=== PATIENT | female | born 1960 | race Caucasian/White ===

== ENCOUNTER 2025-01-12 09:40 | Outpatient (REF) | payer OTHER, SELFPAY ==
--- OUTSIDE RECORDS SUMMARY | 2025-01-09 09:00 | XMS_ITS | Encounter Summary ---
Author Organization [facility] Address [address] [facility] [address] [place] [address] Phone Care Team Providers Care Government Service Executive Name Role Phone Lester Riggs DO Primary Care Provider Reason for Visit * Reason Comments New Patient Encounter Details Date Type Department Care Team ([facility] Contact Info) Description 01/09/2025 9:00 AM EDT Office Visit [facility] [address] [place] [address] [place] [address] Lester Riggs DO [address] [facility], 2nd [place] [address] [email or web address] Family history of hemochromatosis (Primary Dx); Vitamin B 12 deficiency; Osteopenia of multiple sites; Annual physical exam; 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; Hormone replacement therapy; Mitral valve insufficiency, unspecified etiology; Atrial septal aneurysm Social History Tobacco Use Types Packs/Day Years Used Date Smoking Tobacco: Never Smokeless Tobacco: Never Alcohol Use Standard Drinks/Week Comments Never 0 (1 standard drink = 0.6 oz pur e alcohol) Child or Family Care Answer Date Record ed Do you have problems with on e of the following making it difficult for you to work, study, or receive health care? No 01/09/2025 Education Answer Date Recorded Are you interested in help w ith more adult education (for example, completing high school, GED, job training, learning the Ethiopian language, technical skills, or developing parenting skills)? No 01/09/2025 Are you concerned about learning? Not on file 01/09/2025 No 01/09/2025 Yes 01/09/2025 Food Answer Date Recorded Within the past 6 months we worried whether our food would run out before we got money to buy more. Never True 01/09/2025 Within the past 6 months the food we bought just didn't last and we didn't have enough money to get more. Never True Residential Stability Answer Date Recor ded What is your housing situation today? I have mukesh sing 01/09/2025 How many times have you move d in the past 12 months? Zero (I did not move) 01/09/2025 Paying for Meds Answer Date Recorded Do you have trouble paying for medicines? No 01/09/2025 Paying Utility Bills Answer Date Record ed Do you have trouble paying your heating or elect ricity bill? No 01/09/2025 Transportation Answer Date Recorded Has the lack of transportati on kept you from medical appointments or from getting medications? No 01/09/2025 Digital Access Answer Date Recorded No 01/09/2025 Yes 01/09/2025 Do you have reliable internet access at home? Ye s 01/09/2025 Do you have a device (e.g., phone, tablet, computer) with a working camera? Yes 01/09/2025 Intimate Partner Violence Answer Date R ecorded Denied Basic Needs Not on file 01/09/2025 In the past 12 months have y ou been in a relationship with a person who hurts, threatens, or tries to control you? No 01/09/2025 Worried food would run out Not on file 01/09 In the past 12 months have y ou been in a relationship with a person who hurts, threatens, or tries to control you? No 01/09/2025 Comments No Sex and Gender Information Value Date Recorded Sex Assigned at Not on file Legal Sex Female 8:32 PM EDT Gender Identity Not on file Sexual Orientation Not on file documented as of this encounter Last Filed Vital Signs Vital Sign Reading Time Taken Comments Blood Pressure 110/72 01/09/2025 8:56 AM EDT Pulse 99 01/09/2025 8:56 AM EDT Temperature - - Respiratory Rate - - Oxygen Saturation 100% 01/09/2025 8:56 AM EDT Inhaled Oxygen Concentration - - Weight 49.9 kg (110 lb) 01/09/2025 8:56 AM EDT Height - - Body Mass Index 20.78 10/24/2024 9:57 AM EDT documented in this encounter Progress Notes * Lester Riggs, DO - 01/09/2025 9:00 AM EDT Subjective: Patient ID: Ella Vega is a 64 y.o. female . Patient seen today for new patient visit, here to establish care. History and other records were updated and reviewed in the chart. Patient reports a family history of hemochromatosis, iron levels slightly elevated at last check. Will repeat in 6 months, consider need for continued monitoring. She also is requesting labs for monitoring nutritional deficiencies including vitamin B12, vitamin D, strontium. Orders placed. Review of Systems Constitutional: Negative for unexpected weight change. Respiratory: Negative for cough and shortness of breath. Cardiovascular: Negative for chest pain and palpitations. Gastrointestinal: Negative for abdominal pain and blood in stool. Genitourinary: Negative for problems with urination, pain with intercourse and blood in urine. Neurological: Negative for dizziness and headaches. Skin: Negative for persistent rash and breast concerns. Objective: Physical Exam Vitals reviewed. Constitutional: General: She is not in acute distress. Appearance: Normal appearance. HENT: Head: Normocephalic and atraumatic. Neurological: Mental Status: She is alert. Assessment/Plan: Problem List Items Addressed This Visit Mitral regurgitation Followed by cardiology, no symptoms or concerns. Continue monitoring. Osteopenia of multiple sites Follows with Dr. Ugalde, will continue monitoring with trabecular bone scoring. Relevant Orders Comprehensive metabolic panel 25-OH vitamin D Hormone replacement therapy Followed by Dr. Ugalde, continue monitoring. 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 Follows with Dr. Ugalde. Relevant Orders Miscellaneous lab test Atrial septal aneurysm Followed by cardiology, no symptoms or concerns. Continue monitoring. Other Visit Diagnoses Family history of hemochromatosis - Primary Patient no family history of hemochromatosis, borderline elevated iron on previous labs. Recheck in6 months. Will continue monitoring. Relevant Orders Iron and iron binding capacity Ferritin Vitamin B 12 deficiency Recheck lab, continue monitoring. Relevant Orders Vitamin B12 CBC Miscellaneous lab test Annual physical exam Check labs as below. Relevant Orders Vitamin B12 CBC Comprehensive metabolic panel Miscellaneous lab test Lipid panel Return in about 6 months (around 07/09/2025) for Annual physical. Lester Riggs DO This office note has been dictated using dictation software. documented in this encounter Miscellaneous Notes * Assessment & Plan Note - Lester Riggs DO - 01/10/2025 1:55 PM EDT Associated Problem(s): Atrial septal aneurysm Followed by cardiology, no symptoms or concerns. Continue monitoring. * Assessment & Plan Note - Lester Riggs DO - 01/10/2025 1:55 PM EDT Associated Problem(s): Mitral regurgitation Followed by cardiology, no symptoms or concerns. Continue monitoring. * Assessment & Plan Note - Lester Riggs DO - 01/10/2025 1:38 PM EDT Associated Problem(s): Hormone replacement therapy Followed by Dr. Ugalde, continue monitoring. * Assessment & Plan Note - Lester Riggs DO - 01/10/2025 1:37 PM EDT Associated Problem(s): Osteopenia of multiple sites Follows with Dr. Ugalde, will continue monitoring with trabecular bone scoring. * Assessment & Plan Note - Lester Riggs DO - 01/10/2025 1:37 PM EDT Associated Problem(s): 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 Stable well-controlled on Tirosint and liothyronine, continue monitoring. Follows with Dr. Ugalde. documented in this encounter Plan of Treatment Upcoming Encounters Date Type Department Care Team (Late st Contact Info) Description 02/07/2025 10:40 AM EDT Office Visit [facility] [address] [place] [address] [place] [address] Sagrario Ugalde MD [address] [place] [address] 05/08/2025 8:20 AM EST Office Visit [facility] [place] [address] [place] [phone] Sagrario Ugalde MD [address] [place] [address] 01/14/2026 8:00 AM EDT Office Visit [facility] [address] [place] [address] [place] [address] Lester Riggs DO [address] [place] [address] 01/29/2026 8:20 AM EDT Office Visit [facility] [place] [address] [place] [phone] Sagrario Ugalde MD [address] [place] [phone] [email or web address] Scheduled Orders Name Type Priority Associated Diagnoses Orde r Schedule Vitamin B12 Lab Routine Annual physical exam Vitamin B 12 deficiency Expected: 01/09/2025, Expires: 01/09/2026 CBC Lab Routine Annual physical exam Vitamin B 12 deficiency Expected: 01/09/2025, Expires: 01/09/2026 Comprehensive metabolic panel Lab Routine Annual physical exam Osteopenia of multiple sites Expected: 01/09/2025, Expires: 01/09/2026 Miscellaneous lab test Lab Routine Annual physical exam Vitamin B 12 deficiency 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 Expected: 01/09/2025, Expires: 01/09/2026 25-OH vitamin D Lab Routine Osteopenia of multiple sites Expected: 01/09/2025, Expires: 01/09/2026 Lipid panel Lab Routine Annual physical exam Expected: 01/09/2025, Expires: 01/09/2026 Iron and iron binding capacity Lab Routine Family history of hemochromatosis Expected: 01/09/2025, Expires: 01/09/2026 Ferritin Lab Routine Family history of hemochromatosis Expected: 01/09/2025, Expires: 04/10/2025 documented as of this encounter Procedures Procedure Name Priority Date/Time Associated Diagnosis Comments OUTSIDE COLOGUARD Routine 04/19/2022 documented in this encounter Results * HM COLOGUARD (04/19/2022) Outside Cologuard Neg (patient reported) Historical Provider HEALTH MAINTENANCE Final Result documented in this encounter Visit Diagnoses Diagnosis Family history of hemochromatosis- Primary Family history of other endocrine and metabolic diseases Vitamin B 12 deficiency Other B-complex deficiencies Osteopenia of multiple sites Annual physical exam Routine general medical examination at a health care facility 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 Hormone replacement therapy Mitral valve insufficiency, unspecified etiology Atrial septal aneurysm Aneurysm of heart (wall) documented in this encounter Additional Health Concerns Assessment Noted Time PHQ-2 Depression Total Score: 0 01/10/20 25 8:54 AM EDT documented as of this encounter Care Teams Government Service Executive Relationship Specialty Start Date End Date Lester Riggs DO [address] [place] [address], [address] [place] [address] [email or web address] PCP - General Internal Medicine 10/24/24 documented as of this encounter Additional Source Comments The information contained in this document represents components of the legal health record. It is not the complete legal health record.[facility]
--- OUTSIDE RECORDS SUMMARY | 2025-01-12 10:40 | XMS_ITS | Encounter Summary ---
Author Organization [facility] Address [address] [place] [address] Phone Care Team Providers Care Plug Making Operator Name Role Phone Sandra Wiseman MD Primary Care Provider + [phone] Sandra Wiseman MD Unavailable [phone] Sandra Wiseman MD Unavailable [phone] Nkechi Arrington NP Unavailable [phone] Jaydon Leyva MD Unavailable [phone] Vandana Sheppard STUNNER Primary Care Provider Ralph Arita DO Primary Care Provider [phone] Lester Riggs DO Primary Care Provider Encounter Details Date Type Department Care Team (Late st Contact Info) Description 05/19/2017 Ancillary Orders Virtual Department [address] [place] [address] Sandra Wiseman MD [address] [place] [address] Abnormal mammogram of left breast Social History Tobacco Use Types Packs/Day Years Used Date Smoking Tobacco: Never Assessed Comments No Sex and Gender Information Value Date Recorded Sex Assigned at Not on file Legal Sex Female 8:32 PM EDT Gender Identity Not on file Sexual Orientation Not on file documented as of this encounter Plan of Treatment Upcoming Encounters Date Type Department Care Team (Late st Contact Info) Description 02/07/2025 10:40 AM EDT Office Visit [facility] [address] [place] [address] [place] [address] Sagrario Ugalde MD [address] [place] [address] 05/08/2025 8:20 AM EST Office Visit [facility] [place] [address] [place] [phone] Sagrario Ugalde MD [address] [place] [address] [email or web address] 01/14/2026 8:00 AM EDT Office Visit [facility] [address] [place] [address] Lester Riggs DO [address] [address] 01/29/2026 8:20 AM EDT Office Visit [address] [phone] Sagrario Ugalde MD [address] [place] [address] Scheduled Orders Name Type Priority Associated Diagnoses Orde r Schedule Mammogram Diagnostic Call Back (Left) Imaging Routine Abnormal mammogram of left breast Expected: 05/19/2017, Expires: 05/19/2019 documented as of this encounter Visit Diagnoses Diagnosis Abnormal mammogram of left breast documented in this encounter Care Teams Plug Making Operator Relationship Specialty Start Date End Date Sandra Wiseman MD [address] [place] [address] PCP - General Internal Medicine 05/13/17 11/02/22 Vandana Sheppard NP [facility] Ty Martin [address] [address] PCP - General Nurse Practitioner 11/03/22 07/30/24 Ralph Arita DO [address] [place] [address] PCP - General Family Medicine 07/31/24 10/23/24 Lester Riggs DO [address] [place] [address], [address] [place] [address] PCP - General Internal Medicine 10/24/24 Sandra Wiseman MD [address] [place] [address] 05/13/17 10/23/24 Sandra Wiseman MD [address] [place] [address] Historical LMR Provider 02/04/17 2 Nkechi Arrington NP [address] [place] [address] Historical LMR Provider 02/04/17 2 Jaydon Leyva MD [address] [place] [address], [address] [address] Historical LMR Provider 02/04/17 04/26/21 documented as of this encounter Additional Source Comments The information contained in this document represents components of the legal health record. It is not the complete legal health record.[facility]
--- OUTSIDE RECORDS SUMMARY | 2025-01-12 10:40 | XMS_ITS | Encounter Summary ---
Author Organization [facility] Address [address] [place] [address] Care Team Providers Care Precast Concrete Products Installer Name Role Phone Asaf Magdaleno MD Primary Care Provider [phone] Reason for Referral * Imaging (Routine) - Closed Specialty Diagnoses / Procedures Referred By Contac t Referred To Contact Radiology Diagnoses Dense breast tissue Procedures NM MOLECULAR BREAST IMAGING MULTI AREAS Asaf Magdaleno MD [address] [address] Phone: tel: fax: [facility] Radiology - Central Scheduling CT Phone: tel: fax: Referral ID Status Reason Start Date Expiration Date V isits Requested Visits Authorized [id number] Closed Perform Procedure 08/11/2021 08/11/2022 5 5 Encounter Details Date Type Department Care Team (Late st Contact Info) Description 08/11/[address] [facility] Radiology, Outpatient Center (Diag Rad) [address] [facility] [place] [address] Asaf Magdaleno MD [address] [address] Dense breast tissue Social History Tobacco Use Types Packs/Day Years Used Date Smoking Tobacco: Never Assessed Comments Unknown Sex and Gender Information Value Date Recorded Sex Assigned at Not on file Legal Sex Female 11:36 AM EDT Gender Identity Not on file Sexual Orientation Not on file COVID-19 Exposure Response Date Recorded In the last month, have you been in contact with someone who was confirmed or suspected to have Coronavirus / COVID-19? No / Unsure 08/14/2021 12:26 PM EDT documented as of this encounter Plan of Treatment Not on file documented as of this encounter Results * (ABNORMAL) NM MOLECULAR BREAST IMAGING MULTI AREAS (08/14/2021 2:04 PM EDT) Anatomical Region Laterality Modality Breast N/A Mammography 08/14/2021 2:15 PM EDT Impressions 08/14/2021 3:02 PM EDT Small focus of mild uptake in the upper outer RIGHT breast, 10-11 o'clock axis. Limited RIGHT breast ultrasound and possible diagnostic RIGHT mammogram is recommended for further evaluation. BREAST:Right RECOMMENDATION:Additional imaging BREAST:Left RECOMMENDATION:Annual screening mammogram in 1 year BIRADS:0, Incomplete: need additional imaging evaluation. We will call the patient back for the necessary mammographic or sonographic imaging, and a final report will be issued. If an MBI or MRI is recommended, please send an order with preauthorization. Narrative 08/14/2021 3:02 PM EDT CLINICAL INFORMATION:Dense breast tissue, Dense breast tissue, PROTOCOL: Molecular Breast Imaging: After injection, 2 or more images of each breast were acquired. COMPARISON: 12/27/2020, 07/18/2014 FINDINGS: There is moderate background parenchymal uptake. In the middle third depth of upper outer RIGHT breast, 10-11 o'clock axis there is a small focus of mild uptake.Based on the size and location, this appears to correlate with a 3 mm mass on prior screening mammogram dated 12/27/2020 ([facility] image 15/32). Additional imaging is recommended for further evaluation. No suspicious focal uptake in the LEFT breast. Procedure Note Ingrid Youngblood MD - 08/14/2021 CLINICAL INFORMATION:Dense breast tissue, Dense breast tissue, PROTOCOL: Molecular Breast Imaging: After injection, 2 or more images ofeach breast were acquired. COMPARISON: 12/27/2020, 07/18/2014 FINDINGS: There is moderate background parenchymal uptake. In the middle third depth of upper outer RIGHT breast, 10-11 o'clock axisthere is a small focus of mild uptake.Based on the size and location, thisappears to correlate with a 3 mm mass on prior screening mammogram dated12/27/2020 ([facility] image 15/32). Additional imaging is recommended forfurther evaluation. No suspicious focal uptake in the LEFT breast. IMPRESSION: Small focus of mild uptake in the upper outer RIGHT breast, 10-11 o'clockaxis. Limited RIGHT breast ultrasound and possible diagnostic RIGHTmammogram is recommended for further evaluation. BREAST:Right RECOMMENDATION:Additional imaging BREAST:Left RECOMMENDATION:Annual screening mammogram in 1 year BIRADS:0, Incomplete: need additional imaging evaluation. We will callthe patient back for the necessary mammographic or sonographic imaging,and a final report will be issued. If an MBI or MRI is recommended,please send an order with preauthorization. Asaf Magdaleno MD [facility] PROCEDURES Final Result documented in this encounter Visit Diagnoses Diagnosis Dense breast tissue Dense breast tissue documented in this encounter Care Teams Precast Concrete Products Installer Relationship Specialty Start Date End [place] [address] PCP - General 08/11/21 documented as of this encounter
--- OUTSIDE RECORDS SUMMARY | 2025-01-12 10:40 | XMS_ITS | Clinical Summary ---
Author Organization [facility] Address [address] [place] [address] Care Team Providers Care Section Repairer Name Role Phone Pcp, No MD Primary Care Provider Jaydon Stover Unavailable Social History Tobacco Use Types Packs/Day Years Used Date Smoking Tobacco: Never Assessed Comments Unknown Sex and Gender Information Value Date Recorded Sex Assigned at Not on file Legal Sex Female 4:07 AM EST Gender Identity Not on file Sexual Orientation Not on file Last Filed Vital Signs Vital Sign Reading Time Taken Comments Blood Pressure - - Pulse - - Temperature - - Respiratory Rate - - Oxygen Saturation - - Inhaled Oxygen Concentration - - Weight 48.7 kg (107 lb 4.8 oz) 04/27/2024 8:04 A M EST Height 155.2 cm (5' 1.1 ) 04/27/2024 8:04 AM EST Body Mass Index 20.21 04/27/2024 8:04 AM EST Plan of Treatment Upcoming Encounters Date Type Department Care Team (Late st Contact Info) Description 04/30/2025 8:15 AM EST Ancillary Procedure [facility] Department of Imaging [address] [place] [address] Health Maintenance Due Date Last Done Comments CT Colonography 1962 Colonoscopy 1962 Colorectal Cancer Screening 1962 FIT-DNA (Cologuard) 1962 FIT 1962 FOBT 1962 Flex Sigmoidoscopy - 5y 1962 HIV Screening 1962 Hepatitis C Screening 1980 Pap Smear 12/05/1983 Cervical Cancer Screening 1992 HPV/Cotest 1992 Pneumococcal Vaccine, 50+ Years (1 of 1 - PCV) 2012 04/19/2011 Influenza Vaccine (#1) 2024 4, 01/06/2022, 01/06/2022, Additional history exists Bone Density Screening 04/27/2026 5, 04/22/2023, 07/13/2022, Additional history exists Breast Cancer Screening 07/13/2026 07/14/19 25, 07/13/2024, 05/17/2017 DTaP,Tdap,and Td Vaccines (3 - Td or Tdap) 08/12/2026 08/12/2016, 02/13/2009 MMR Vaccines Aged Out 10/30/2016 No longer eligi ble based on patient's age to complete this topic Zoster Vaccines Completed 01/04/2021, 06/15/2019 COVID-19 Vaccine Completed 01/02/2024, , 08/10/2022, Additional history exists HPV Vaccines Aged Out No longer eligi ble based on patient's age to complete this topic Hepatitis A Vaccines Aged Out No long er eligible based on patient's age to complete this topic Meningococcal Vaccine Aged Out No mabel jean eligible based on patient's age to complete this topic Procedures Procedure Name Priority Date/Time Associated Diagnosis Comments DXA BONE DENSITY STANDARD EXAM SPINE + FEMUR W OR WO TBS Routine 04/27/2024 9:00 AM EST Osteoporosis, unspecified osteoporosis type, unspecified pathological fracture presence from Last 3 Months or Most Recently Relevant to Health Maintenance Results * DXA bone density standard exam spine + femur w or wo TBS (04/27/2024 9:00 AM EST) Anatomical Region Laterality Modality Femur, L-spine Nuclear Medicine 04/27/2024 9:55 AM EST Impressions 04/27/2024 12:08 PM EST Osteopenia of the lumbar spine. Compared to 2023 BMD increased 3.7%. Osteopenia of the hips. Compared to 2023 BMD increased 3.1%. Electronic signature on this final report indicates that Pete Thorne MD has personally reviewed this examination Reminder to Patients and Legally Authorized Representatives: Language in this report is designed for medical communication with other treating physicians and clinical practitioners. Please speak with your provider(s) about any questions or concerns related to the content of this report. AF^0 Narrative 04/27/2024 12:08 PM EST DXA BONE DENSITY STANDARD EXAM SPINE + FEMUR W OR WO TBS A bone density study was performed: INDICATION: 63 year old female. M81.0 Age-related osteoporosis without current pathological fracture. FINDINGS: This is a summary of bone density measurements performed on the lumbar spine and proximal femurs. Comparison is made to baseline study 2023. LUMBAR SPINE (L1-L4) Bone Mineral Density: 0.960(g/cm2) *T-Score: -1.8 Trabecular bone score: 1.368 Trabecular bone T-score: -1.2 LUMBAR SPINE (A-P): Osteopenia of the lumbar spine. Vertebral alignment and morphology are grossly normal. PROXIMAL FEMURS Femoral Neck Mean Bone Mineral Density: 0.831(g/cm2) *T-Score: -1.5 Total Proximal Femoral Mean Bone Mineral Density: 0.856(g/cm2) *T-Score: -1.2 PROX. FEMURS (total mean): Osteopenia of the hips. No distortions and no significant asymmetries noted. Estimated body composition 21.9% fat 78.1% lean tissue. FRAX fracture risk of major osteoporotic fracture is 7.7% (7.2% adjusted for trabecular bones score) FRAX fracture risk of hip fracture is 0.8% (0.7% adjusted for trabecular bone score) Procedure Note Pete Thorne MD - 04/27/2024 DXA BONE DENSITY STANDARD EXAM SPINE + FEMUR W OR WO TBS A bone density study was performed: INDICATION: 63 year old female. M81.0 Age-related osteoporosis without current pathological fracture. FINDINGS: This is a summary of bone density measurements performed on the lumbarspine and proximal femurs. Comparison is made to baseline study 2023. LUMBAR SPINE (L1-L4) Bone Mineral Density: 0.960(g/cm2) *T-Score: -1.8 Trabecular bone score: 1.368 Trabecular bone T-score: -1.2 LUMBAR SPINE (A-P): Osteopenia of the lumbar spine. Vertebral alignmentand morphology are grossly normal. PROXIMAL FEMURS Femoral Neck Mean Bone Mineral Density: 0.831(g/cm2) *T-Score: -1.5 Total Proximal Femoral Mean Bone Mineral Density: 0.856(g/cm2) *T-Score: -1.2 PROX. FEMURS (total mean): Osteopenia of the hips. No distortions and nosignificant asymmetries noted. Estimated body composition 21.9% fat 78.1% lean tissue. FRAX fracture risk of major osteoporotic fracture is 7.7% (7.2% adjustedfor trabecular bones score) FRAX fracture risk of hip fracture is 0.8% (0.7% adjusted for trabecularbone score) IMPRESSION: Osteopenia of the lumbar spine. Compared to 2023 BMD increased 3.7%. Osteopenia of the hips. Compared to 2023 BMD increased 3.1%. Electronic signature on this final report indicates that Pete Alas MD has personally reviewed this examination Reminder to Patients and Legally Authorized Representatives: Language in this report is designed for medical communication with othertreating physicians and clinical practitioners. Please speak with your provider(s) about any questions or concernsrelated to the content of this report. AF^0 Isadora Del Angel IMAldo DXA PROCEDURES Final Result from Last 3 Months or Most Recently Relevant to Health Maintenance Insurance [employer] Care Teams Section Repairer Relationship Specialty Start Date End Date Rita Martínez MD [address] [place] [address] PCP - General Internal Medicine 09/26/19 Jaydon Fernández [address] [place] [phone] PCP - Insurance Payer PCP 04/11/24
--- OUTSIDE RECORDS SUMMARY | 2025-01-12 10:40 | XMS_ITS ---
Author Name [facility] Organization Unknown Encounters Encounter Type Encounter Reason Primary Diagnosis Location Date Ambulatory Age-related osteoporosis without current Age-related osteoporosis without current pathological fracture [facility] 04/27/2024 Ambulatory Asymptomatic menopausal state Asymptomatic menopausal state [facility] 04/22/2023 Ambulatory [facility] 11/06/19 23 Ambulatory [facility] 11/06/19 23 Ambulatory [facility] 11/06/19 23 Ambulatory [facility] 07/13/2022 Ambulatory [facility] 07/10/2021 Ambulatory [facility] 07/10/2021 Ambulatory [facility] 08/06/2020 Care Team Organization Name Specialty Phone Email Start Date End Da te [facility] NO PCP Primary Care 04/22/202307/2023 [facility] 11/06/2022 [facility] 11/05/202210/18
--- OUTSIDE RECORDS SUMMARY | 2025-01-12 10:40 | XMS_ITS | Clinical Summary ---
Author Organization [facility] Address [email or web address] [place] [address] Phone Care Team Providers Care Parts Fabricator Name Role Phone Riggs, Lesterdeb Chunw Primary Care Provider Allergies Active Allergy Reactions Criticality Noted Date Comments Erythromycin Nausea and/or Vomiting,Nausea Only 06/29/2023 pt states not allergic Levothyroxine Other (See Comments) 10/24/2024 Afib Montelukast Palpitations Low 06/29/2023 (+) chills and nightsweats reported 04/17/05 Medications estradioL (VIVELLE-DOT) 0.075 mg/[address] 1 patch onto the skin 2 (two) times a week. 09/06/2024 Active progesterone (PROMETRIUM) 100 mg capsule Take 200 mg by mouth daily. 02/14/2024 Active liothyronine (CYTOMEL) 5 MCG tablet Take 5 mcg by mouth 2 (two) times a day. 10/01/2024 Active pseudoephedrine HCl 30 mg CsTR Take 30 mg by mouth as needed. 08/11/2024 Active TIROSINT 75 mcg CapIndications:H ypothyroidism due to Gab thyroiditis Take 1 capsule (75 mcg total) by mouth every morning. 11/06/2024 Active Active Problems Problem Noted Date Diagnosed Date Hormone replacement therapy 10/25/2024 Assessment & Plan (01/10/2025 1:38 PM EDT): Followed by Dr. Ugalde, continue monitoring. Assessment & Plan (10/25/2024 4:42 PM EDT): Following with curbstone setter who is prescribing rx. Mitral regurgitation 08/26/2023 Assessment & Plan (01/10/2025 1:55 PM EDT): Followed by cardiology, no symptoms or concerns. Continue monitoring. Seasonal allergies 08/26/2023 Fibrocystic breast changes 08/26/2023 Overview (01/09/2025): noted as dense breast noted as dense breast noted as dense breast Atrial septal aneurysm 08/26/2023 Assessment & Plan (01/10/2025 1:55 PM EDT): Followed by cardiology, no symptoms or concerns. Continue monitoring. Osteopenia of multiple sites 08/03/2023 Assessment & Plan (01/10/2025 1:37 PM EDT): Follows with Dr. Ugalde, will continue monitoring with trabecular bone scoring. Assessment & Plan (10/25/2024 4:42 PM EDT): Previous bone densities have shown osteoporosis. Most recently osteopenia. No hx fracture. Has bone density tests yearly, currently @ [facility] to include trabecular bone score. #s have improved with estrogen. Getting a good amount of calcium & exercise & not at risk for falls. 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 Follows with Dr. Ugalde. Assessment & Plan (10/25/2024 4:40 PM EDT): Clinically & biochemically euthyroid on current rx. Will continue current rx & repeat labs prior to follow up. 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; Hormone replacement therapy; Mitral valve insufficiency, unspecified etiology; Atrial septal aneurysm 11/22/2024 Orders Only [facility] [address] [place] [address] Sagrario Uaglde MD Osteopenia, unspecified location (Primary Dx) 11/16/2024 Telephone [facility] [address] [place] [address] Sagrario Ugalde MD 11/06/2024 Orders Only [facility] [address] [place] [address] Sagrario Ugalde MD 11/02/2024 Telephone [facility] [address] [place] [address] Sagrario Ugalde MD Forms & Paperwork 10/24/2024 10:00 AM EDT Office Visit [facility] [address] [place] [address] Sagrario Ugalde MD Osteopenia of multiple sites (Primary Dx); Hormone replacement therapy; 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 10/24/2024 Orders Only [address] [place] [address] Sagrario Ugalde MD from Last 3 Months Immunizations Immunization Administration Dates Next Due COVID-19 Pfizer Comirnaty Vaccine 12+ 01/02/2024 Hepatitis B Adult 02/14/2008 INFLUENZA, SPLIT VIRUS, TRIVALENT PF 01/02/2024 INFLUENZA, SPLIT VIRUS, TRIV ALENT W/ PRESERVATIVE IM 01/02/2024,12/18/2013,01/17/2013 Influenza Quadrivalent MDCK Preservative Free IM 01/06/2022,01/29/2020,01/01/2019,2016 Influenza Quadrivalent Prese rvative Free IM 01/04/2021,12/26/2017 Influenza, Unspecified Formulation 04/19/2011 MMR 10/30/2016 PPD Test 12/19/2014,01/24/2013 Pneumococcal, Unspecified Formulation 04/19/2011 Tdap 08/12/2016,02/13/2009 Zoster live 04/19/2011 Zoster recombinant 01/04/2021,06/15/2019 Family History Medical History Relation Comments AAA Father Dementia Father Diabetes mellitus Father Heart attack Father Nephrolithiasis Father Lung cancer Maternal Grandmother Thyroid disease Maternal Grandmother s/p thyroid ectomy Diabetes mellitus Mother Heart attack Mother Hemochromatosis Mother Thyroid cancer Niece Hip fracture Paternal Grandmother Heart attack Sister 1 Relation Status Comments Father Maternal Grandmother Mother Niece Alive Paternal Grandmother Sister 1 Sister 2 Alive Sister 3 Alive Social History Tobacco Use Types Packs/Day Years Used Date Smoking Tobacco: Never Smokeless Tobacco: Never Tobacco Cessation:Counseling Given: Not Answered Alcohol Use Standard Drinks/Week Comments Never 0 [...] high school, GED, job training, learning the Irish language, technical skills, or developing parenting skills)? [...] AM EDT Temperature - - Respiratory Rate 20 10/24/2024 9:57 AM EDT Oxygen Saturation 100% 01/09/2025 8:56 AM EDT Inhaled Oxygen Concentration - - Weight 49.9 kg (110 lb) 01/09/2025 8:56 AM EDT Height 154.9 cm (5' 1 ) 10/24/2024 9:57 AM EDT Body Mass Index 20.78 10/24/2024 9:57 AM EDT Plan of Treatment Upcoming Encounters Date Type Department Care Team (Late st Contact Info) Description 02/07/2025 10:40 AM EDT Office Visit [facility] [address] [place] [address] [place] [address] Sagrario Ugalde MD [address] [place] [address] 05/08/2025 8:20 AM EST Office Visit [facility] [address] [phone] Sagrario Ugalde MD [address] [place] [phone] 01/14/2026 8:00 AM EDT Office Visit [facility] [address] [place] [address] Lester Riggs DO [address] [address] 01/29/2026 8:20 AM EDT Office Visit [facility] Endocrinology [address] [phone] Sagrario Ugalde MD [address] [place] [phone] Health Maintenance Due Date Last Done Comments HEPATITIS C SCREENING 1980 HIV ONE-TIME SCREENING (18-65 YEARS) 1980 COLONOSCOPY 12/05/2007 FIT TEST 12/05/2007 FOBT 12/05/2007 SIGMOIDOSCOPY 12/05/2007 VIRTUAL COLONOSCOPY 12/05/2007 PNEUMOCOCCAL VACCINES (50+ years) (1 of 1 - PCV) 2012 INFLUENZA VACCINE (#1) 2024 , 01/02/2024, 01/06/2022, Additional history exists COLOGUARD 04/19/2025 04/19/2022 COLORECTAL CANCER SCREENING 04/19/2025 TSH LEVEL 01/08/2026 01/08/2025, 08/18, 08/16/2020, Additional history exists DEPRESSION SCREENING 01/09/2026 01/09/2025 MAMMOGRAM 07/13/2026 07/13/2024, 06/18, 09/04/2022, Additional history exists Adult Td,Tdap Booster 08/12/2026 08/12/2016, 009 PAP SMEAR 04/03/2027 04/03/2024, 07/04/2015 LIPID PANEL 09/14/2029 09/14/2024, 08/18, 09/14/2024 RSV VACCINE (1 - 1-dose 75+ series) 2037 ZOSTER VACCINES Completed 01/04/2021, 05/21, 04/19/2011 COVID-19 VACCINE Completed 01/02/2024, , 08/10/2022, Additional history exists SMOKING STATUS SCREENING (Once After 26 Yrs) Completed 01/09/2025 HEPATITIS A VACCINES Aged Out No long er eligible based on patient's age to complete this topic HIB VACCINES Aged Out No longer eligi ble based on patient's age to complete this topic MENINGOCOCCAL VACCINES (ACWY) Aged Out No longer eligible based on patient's age to complete this topic MENINGOCOCCAL VACCINES (B) Aged Out N o longer eligible based on patient's age to complete this topic Medical Devices Not on file Procedures Procedure Name Priority Date/Time Associated Diagnosis Comments BD DXA MONITORING Routine 11/22/2024 6:0 0 PM EDT Osteopenia, unspecified location OUTSIDE LAB Routine 10/13/2024 10:19 AM EDT OUTSIDE LAB Routine 10/13/2024 10:19 AM EDT OUTSIDE LAB Routine 10/13/2024 10:10 AM EDT OUTSIDE HDL Routine 09/14/2024 OUTSIDE TSH LEVEL Routine 09/14/2024 HM PAP SMEAR FOR RESULT ENTRY ONLY Routine 04/03/2024 BI MAMMOGRAM OUTSIDE (NO INTERPRETATION) Routine 09/04/2022 12:05 AM EDT OUTSIDE COLOGUARD Routine 04/19/2022 from Last 3 Months or Most Recently Relevant to Health Maintenance Results * Outside Lab (10/13/2024 10:19 AM EDT) Only the most recent of3 resultswithin the time period is included. Historical Provider MD LAB BLOOD ORDERABLES Karol l Result * (ABNORMAL) Outside HDL (09/14/2024) HDL - External 87(A) 40 - 80 mg/dL Historical Provider MD LAB BLOOD ORDERABLES Karol l Result * PAP SMEAR FOR RESULT ENTRY ONLY (04/03/2024) Pap smear NILM, HPV neg Historical Provider HEALTH MAINTENANCE Final Result * Mammogram Outside (No Interpretation) (09/04/2022 12:05 AM EDT) Narrative SYSTEMGENERATED, DOCUMENTATION - 11/03/2022 11:08 AM EDT This study is for PACS storage only and not for interpretation. Unknown Unknown MD IMG OUTSIDE IMAGING W/OUT INT ERPRETATION Final Result * HM COLOGUARD (04/19/2022) Outside Cologuard Neg (patient reported) Historical Provider HEALTH MAINTENANCE Final Result from Last 3 Months or Most Recently Relevant to Health Maintenance Insurance [facility] [place] [address] [place] [address] [facility] Care Teams Parts Fabricator Relationship Specialty Start Date End Date Lester Riggs DO [address] [place] [address], [address] [place] [address] [email or web address] PCP - General Internal Medicine 10/24/24 Additional Source Comments The information contained in this document represents components of the legal health record. It is not the complete legal health record.[facility]
--- OUTSIDE RECORDS SUMMARY | 2025-01-12 10:40 | XMS_ITS | Encounter Summary ---
Author Organization [facility] Address [address] [place] [address] Care Team Providers Care Driver Retraining Instructor Name Role Phone Asaf Magdaleno MD Primary Care Provider [phone] Encounter Details Date Type Department Care Team (Late st Contact Info) Description 08/11/2021 Ancillary Orders [facility] Radiology, Outpatient Center (Diag Rad) [address] [facility], [address] [place] [address] ProviderEleazar MD [address] [place] [address] Social History Tobacco Use Types Packs/Day Years [...] documented as of this encounter Results * NM TRANSFER OF OUTSIDE FILMS (08/11/2021 12:00 AM EDT) Narrative IMAGING - 08/11/2021 3:17 PM EDT This order has been auto-finalized and does not contain a result. Procedure Note [facility] [place] - 08/11/2021 This order has been auto-finalized and does not contain a result. us Eleazar Provider MD CORREIA NM PROCEDURES Final Resu lt IMAGING documented in this encounter Visit Diagnoses Not on filedocumented in this encounter Care Teams Driver Retraining Instructor Relationship Specialty Start Date End Date [place] [address] PCP - General 08/11/21 documented as of this encounter
--- OUTSIDE RECORDS SUMMARY | 2025-01-12 10:41 | XMS_ITS | Encounter Summary ---
Author Organization [facility] [employer] [facility] Address [address] [place] [address] Care Team Providers Care Weapons Officer Name Role Phone Asaf Magdaleno MD Primary Care Provider [phone] Encounter Details Date Type Department Care Team (Late st Contact Info) Description 11/06/2022 Ancillary Orders [facility] Radiology, Outpatient Center (Breast Imaging) [address] [facility], [address] [place] [address] Riki Hamilton MD [address] [place] [address] Social History Tobacco Use Types Packs/Day Years Used Date Smoking Tobacco: Never Assessed Comments Unknown Sex and Gender Information Value Date Recorded Sex Assigned at Not on file Legal Sex Female 11:36 AM EDT Gender Identity Not on file Sexual Orientation Not on file documented as of this encounter Plan of Treatment Not on file documented as of this encounter Visit Diagnoses Not on filedocumented in this encounter Care Teams Weapons Officer Relationship Specialty Start Date [place] [address] PCP - General 08/11/21 documented as of this encounter
--- OUTSIDE RECORDS SUMMARY | 2025-01-12 10:41 | XMS_ITS | Encounter Summary ---
Author Organization [facility] Address [address] [place] [address] Care Team Providers Care Building Drafting Officer Name Role Phone Asaf Magdaleno MD Primary Care Provider Encounter Details Date Type Department Care Team (Late st Contact Info) Description 11/06/2022 Ancillary Orders [facility] Radiology, Outpatient Center (Breast Imaging) [address] [place] [address], [address] [place] [address] Asaf Magdaleno MD [address] [address] Social History Tobacco Use Types Packs/Day Years [...] on filedocumented in this encounter Care Teams Building Drafting Officer Relationship Specialty Start Date End Date Asaf Magdaleno MD [address] [address] PCP - General 08/11/21 documented as of this encounter
--- OUTSIDE RECORDS SUMMARY | 2025-01-12 10:41 | XMS_ITS | Encounter Summary ---
Author Organization [facility] Address [address] [place] [address] Care Team Providers Care Process Manager Name Role Phone Asaf Magdaleno MD Primary Care Provider [phone] Encounter Details Date Type Department Care Team (Late st Contact Info) Description 08/20/2021 Ancillary Orders [facility] Radiology, Outpatient Center (Diag Rad) [address] [place] [address], [address] [place] [phone] , Unknown 1 Dont Change Social History Tobacco Use Types Packs/Day Years [...] documented as of this encounter Results * US TRANSFER OF OUTSIDE FILMS (08/15/2021 12:00 AM EDT) Narrative IMAGING - 08/20/2021 1:01 PM EDT This order has been auto-finalized and does not contain a result. us Cutover Provider IMG US PROCEDURES Final Resu lt IMAGING documented in this encounter Visit Diagnoses Not on filedocumented in this encounter Care Teams Process Manager Relationship Specialty Start Date End Date Asaf Magdaleno MD [address] [address] PCP - General 08/11/21 documented as of this encounter
--- OUTSIDE RECORDS SUMMARY | 2025-01-12 10:41 | XMS_ITS | Clinical Summary ---
Author Organization [employer] Address [address] [place] [address] Care Team Providers Care Licensing Coordinator Name Role Phone Asaf Magdaleno MD Primary Care Provider [phone] Social History Tobacco Use Types Packs/Day Years Used Date Smoking Tobacco: Never Assessed Comments Unknown Sex and Gender Information Value Date Recorded Sex Assigned at Not on file Legal Sex Female 11:36 AM EDT Gender Identity Not on file Sexual Orientation Not on file Plan of Treatment Health Maintenance Due Date Last Done Comments CT Colonography 1960 Colonoscopy 1960 Colorectal Cancer Screening 1962 FIT-DNA 1962 FIT 1962 FOBT 1960 Hepatitis C Screening 1960 Sigmoidoscopy 1960 Annual Physical Exam 1980 Pap Smear 12/05/1983 Cervical Cancer Screening 1992 HPV/Cotest 1992 Pneumococcal Vaccine: 50+ Years (1 of 1 - PCV) 2012 04/19/2011 Influenza Vaccine (#1) 2024 , 01/06/2022, 01/04/2021, Additional history exists Mammogram 07/13/2025 07/13/2024, 06/18, 05/17/2017 Tdap and Td Vaccines Adult 08/12/2026 08/12/2016, RSV 60+ (1 - 1-dose 75+ series) 2037 MMR Vaccines Discontinued 10/30/2016 Zoster Vaccines Completed 01/04/2021, 05/21, 04/19/2011 COVID-19 Vaccine Completed 01/02/2024, , 08/10/2022, Additional history exists Osteoporosis Screening Discontinued 04/27/2024, 2022 HIB Vaccines Aged Out No longer eligi ble based on patient's age to complete this topic HPV Vaccines (No Doses Required) Completed Hepatitis A Vaccines Aged Out No long er eligible based on patient's age to complete this topic IPV Vaccines Aged Out No longer eligi ble based on patient's age to complete this topic Meningococcal Vaccine Aged Out No mabel jean eligible based on patient's age to complete this topic RSV <20 Months Aged Out No longer sarah gible based on patient's age to complete this topic [place] [address] Care Teams Licensing Coordinator Relationship Specialty Start Date End Date Asaf Magdaleno MD [facility] [address] [place], [place] [id number] PCP - General 08/11/21
--- OUTSIDE RECORDS SUMMARY | 2025-01-12 10:41 | XMS_ITS | Encounter Summary ---
Author Organization [facility] Address [address] [place] [address] Care Team Providers Care Truss Driver Helper Name Role Phone Beryl Rousseau MD Primary Care Provider [phone] Reason for Visit * Reason Onset Date Comments Labs Only 11/09/2024 Encounter Details Date Type Department Care Team (Late st Contact Info) Description 11/09/2024 Telephone [facility] [id number] [place] [address] Johny Howard MD [address] [place] [address] Social History Tobacco Use Types Packs/Day Years Used Date Smoking Tobacco: Never Smokeless Tobacco: Never Alcohol Use Standard Drinks/Week Comments Not Currently 0 (1 standard drink = 0.6 oz pur e alcohol) Comments No Sex and Gender Information Value Date Recorded Sex Assigned at Female 04/03/2024 12:54 PM EST Legal Sex Female 2:22 AM EST Gender Identity Female 04/03/2024 12:54 PM EST Sexual Orientation Straight 04/03/2024 12 :55 PM EST documented as of this encounter Progress Notes * Daily Cespedes - 11/24/2024 8:43 AM EDT Patient stopped at the desk again with the same request and also dropped a note which was given to Stephenie to be given to Dr Howard * Salome Bhatti - 11/22/2024 8:42 AM EDT Pt is calling back re below * Salome Bhatti - 11/17/2024 3:48 PM EDT Pt called in asking that the lab orders from 11/09 be renewed for another year. She states she will be on vacation and won't be able to come into the office to be seen. * Shar Arrington - 11/17/2024 10:30 AM EDT Pt came in office to also request procollagen type 1 intact N terminal, c- telepeptide, and P1Np procollagen type 1 N terminal peptide Misc test to addition to orders that have been placed already. * Shar Arrington - 11/09/2024 12:12 PM EDT Pt came into office again to remind Dr. Howard to kindly extend labs that have been placed from 04/06/2024 to next year. documented in this encounter Plan of Treatment Upcoming Encounters Date Type Department Care Team (Late st Contact Info) Description 01/17/2025 12:45 PM EDT Hospital En[facility] [address] [place] [address] 07/19/2025 7:15 AM EDT [facility]oint[facility] at [address] [phone] documented as of this encounter Visit Diagnoses Not on filedocumented in this encounter Care Teams Truss Driver Helper Relationship Specialty Start Date End Date Beryl Rousseau MD [address] [place] [id number] PCP - General Internal Medicine 07/13/24 documented as of this encounter
--- OUTSIDE RECORDS SUMMARY | 2025-01-12 10:41 | XMS_ITS | Clinical Summary ---
Author Organization [facility] Address [address] [facility] [address] [address] Care Team Providers Care Leak Hunter Name Role Phone Dex Smith MD Primary Care Provider [phone] Medications estradiol (Menostar) 14 mcg/24 hrIndications:Po st-menopause on HRT (hormone replacement therapy) Place 1 patch on the skin 1 (one) time per week. 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 90 capsule 3 09/08/2021 Active Social History Tobacco Use Types Packs/Day Years Used Date Smoking Tobacco: Never Assessed Comments Unknown Sex and Gender Information Value Date Recorded Sex Assigned at Not on file Legal Sex Female 6:03 AM EST Gender Identity Not on file Sexual Orientation Not on file Last Filed Vital Signs Vital Sign Reading Time Taken Comments Blood Pressure 124/76 10/28/2020 2:00 PM EDT Pulse 82 10/28/2020 2:00 PM EDT Temperature - - Respiratory Rate - - Oxygen Saturation 100% 10/28/2020 2:00 PM EDT Inhaled Oxygen Concentration - - Weight 43.1 kg (95 lb) 10/28/2020 2:00 PM EDT Height 154.9 cm (5' 1 ) 10/28/2020 2:00 PM EDT Body Mass Index 17.95 10/28/2020 2:00 PM EDT Plan of Treatment Health Maintenance Due Date Last Done Comments CT Colonography 1962 Colonoscopy 1962 Colorectal Cancer Screening 1962 FIT-DNA 1962 FIT 1962 FOBT 1962 HIV Screening 1962 Lipid Panel 1962 Sigmoidoscopy 1962 Hepatitis C Screening 1980 Pap Smear 12/05/1983 Cervical Cancer Screening 1992 HPV/Cotest 1992 Hepatitis B Vaccines (2 of 3 - 19+ 3-dose series) 03/14/2008 02/15/2008, 02/14/2008 Pneumococcal Vaccine: 50+ Years (1 of 1 - PCV) 2012 04/19/2011 Mammogram 05/18/2019 05/18/2017, 05/17/2017 Depression Screening 04/19/2024 COVID-19 Vaccine ( season) 2024 08/10/2022, 02/10/2022, 10/03/2021, Additional history exists Influenza Vaccine (#1) 2024 , 01/04/2021, 01/29/2020, Additional history exists Bone Density Scan 04/22/2025 04/22/2023, 07/13/2022 DTaP/Tdap/Td Vaccines (3 - Td or Tdap) 08/12/2026 08/12/2016, 02/13/2009 Pneumococcal Vaccine: Pediatrics (0 to 5 Years) and At-Risk Patients (6 to 49 Years) Discontinued 04/19/2011 MMR Vaccines Completed 10/30/2016 Zoster Vaccines Completed 01/04/2021, 05/21, 04/19/2011 HIB Vaccines Aged Out No longer eligi ble based on patient's age to complete this topic HPV Vaccines Aged Out No longer eligi ble based on patient's age to complete this topic Hepatitis A Vaccines Aged Out No long er eligible based on patient's age to complete this topic IPV Vaccines Aged Out No longer eligi ble based on patient's age to complete this topic Meningococcal B Vaccine Aged Out No l onger eligible based on patient's age to complete this topic Meningococcal Vaccine Aged Out No mabel jean eligible based on patient's age to complete this topic Rotavirus Vaccines Aged Out No longer eligible based on patient's age to complete this topic Procedures Procedure Name Priority Date/Time Associated Diagnosis Comments BD DEXA AXIAL Routine 07/13/2022 1:25 PM EDT Asymptomatic menopausal state from Last 3 Months or Most Recently Relevant to Health Maintenance Results * BD DEXA AXIAL (07/13/2022 1:25 PM EDT) Anatomical Region Laterality Modality Body Nuclear Medicine 07/15/2022 9:34 AM EDT Impressions 07/15/2022 3:57 PM EDT The patient has osteoporosis. Since the previous study, there has been statistically significant decrease in the bone mineral density of the lumbar spine. Since the previous study, there has been no significant change in the bone mineral density of the hip. Secondary causes of bone loss should be evaluated if clinically indicated since the etiology of low BMD cannot be determined by BMD measurement alone. Recommend follow up DXA in two years. Please note: 1) The T-score compares the BMD of an individual with the young normal mean and expresses the difference as a standard deviation score. 2) The Z-score compares the BMD of an individual with age-matched, gender- matched, and ethnic-matched controls and expresses the difference as a standard deviation score. 3) The World Health Organization classifies postmenopausal women as osteoporotic when T-scores are -2.5 or below, low bone mass when T-scores are between -1.0 and -2.5, and normal when T-scores are -1.0 or above. 4) In untreated postmenopausal women and elderly men there is a strong association between low BMD and the risk of osteoporotic fractures. 5) The National Osteoporosis Foundation recommends pharmacologic therapy for osteoporosis in postmenopausal women and men over 50 who have: * A vertebral or hip fracture * A DXA hip or spine T-score less than or equal to -2.5 * Low bone mass and a US-adapted WHO 10 year probability of a hip fracture greater than or equal to 3% or 10 year probability of any major osteoporosis-related fracture greater than or equal to 20%. * Patient preferences may indicate treatment for people with 10-year fracture probability above or below these levels. 6) The [place] College [employer]umat[employer] recommends pharmacologic therapy for osteoporosis for chronic glucocorticoid users with T-scores of -2.0 or below. APPROVED BY STAFF RADIOLOGIST: Foreign John 07/15/2022 3:57 PM EDT Narrative 07/15/2022 3:57 PM EDT NAME: FAUSTO VEGA : 1960 AGE: 61 years GENDER: Female ORD PHYS: MIKE MAGDALENO LOCATION: [facility] 07/13/2022 1:25 PM EDT [id number] (BD DEXA AXIAL) [id number] BONE MINERAL DENSITY STUDY INDICATION: 61-year-old postmenopausal white female. Patient reports menopause at age 52. The patient is not currently on therapy for osteoporosis. COMPARISON: DEXA scan 07/10/2021 TECHNIQUE: The study was performed using a Hologic Horizon A bone densitometer. TECHNICAL QUALITY: Technical quality is adequate. RESULTS: PA Lumbar Spine: Bone mineral density (BMD) as determined from L1-L4 is 0.750 g/cm2. T-score is -2.7. Z-score is -1.3. Comment: On comparison to previous study of 07/10/2021, there has been decrease of 0.048 g/cm2 or 6.0%. This change is statistically significant. At this facility, the least significant change in BMD of the lumbar spine (L1- L4) is 0.022 g/cm2. Proximal Femur: Bone mineral density (BMD) as determined in the left femoral neck is 0.672 g/cm2. T-score is -1.6. Z-score is -0.3. Bone mineral density (BMD) as determined in the left total hip is 0.698 g/cm2. T-score is -2.0. Z-score is -1.1. Comment: On comparison to previous study of 07/10/2021, there has been decrease of 0.010 g/cm2 or 1.4% in the total hip. This change is not statistically significant. At this facility, the least significant change in BMD of the total hip is 0.027 g/cm2. FRAX analysis indicates the 10-year fracture risk for a major osteoporotic fracture is 6.9% and a hip fracture is 0.6%. FRAX analysis corrected for TBS indicates the 10-year fracture risk for a major osteoporotic fracture is 6.2% and a hip fracture is 0.5%. Procedure Note Foreign John MD - 07/15/2022 NAME: FAUSTO VEGA : 1960 AGE: 61 years GENDER: Female ORD PHYS: MIKE MAGDALENO LOCATION: [facility] 07/13/2022 1:25 PM EDT [id number] (BD DEXA AXIAL) [id number] BONE MINERAL DENSITY STUDY INDICATION: 61-year-old postmenopausal white female. Patient reportsmenopause at age 52. The patient is not currently on therapy forosteoporosis. COMPARISON: DEXA scan 07/10/2021 TECHNIQUE: The study was performed using a Hologic Horizon A bonedensitometer. TECHNICAL QUALITY: Technical quality is adequate. RESULTS: PA Lumbar Spine: Bone mineral density (BMD) as determined from L1-L4 is 0.750 g/cm2. T-score is -2.7. Z-score is -1.3. Comment: On comparison to previous study of 07/10/2021, there has beendecrease of 0.048 g/cm2 or 6.0%. This change is statisticallysignificant. At this facility, the least significant change in BMD of thelumbar spine (L1-L4) is 0.022 g/cm2. Proximal Femur: Bone mineral density (BMD) as determined in the left femoral neck is 0.672g/cm2. T-score is -1.6. Z-score is -0.3. Bone mineral density (BMD) as determined in the left total hip is 0.698g/cm2. T-score is -2.0. Z-score is -1.1. Comment: On comparison to previous study of 07/10/2021, there has beendecrease of 0.010 g/cm2 or 1.4% in the total hip. This change is notstatistically significant. At this facility, the least significant changein BMD of the total hip is 0.027 g/cm2. FRAX analysis indicates the 10-year fracture risk for a major osteoporoticfracture is 6.9% and a hip fracture is 0.6%. FRAX analysis corrected for TBS indicates the 10-year fracture risk for amajor osteoporotic fracture is 6.2% and a hip fracture is 0.5%. IMPRESSION: The patient has osteoporosis. Since the previous study, there has been statistically significantdecrease in the bone mineral density of the lumbar spine. Since the previous study, there has been no significant change in the bonemineral density of the hip. Secondary causes of bone loss should be evaluated if clinically indicatedsince the etiology of low BMD cannot be determined by BMD measurementalone. Recommend follow up DXA in two years. Please note: 1) The T-score compares the BMD of an individual with the young normalmean and expresses the difference as a standard deviation score. 2) The Z-score compares the BMD of an individual with age-matched,gender-matched, and ethnic-matched controls and expresses the differenceas a standard deviation score. 3) The World Health Organization classifies postmenopausal womenas osteoporotic when T-scores are -2.5 or below, low bone mass whenT-scores are between -1.0 and -2.5, and normal when T-scores are -1.0 orabove. 4) In untreated postmenopausal women and elderly men there is a strongassociation between low BMD and the risk of osteoporotic fractures. 5) The National Osteoporosis Foundation recommends pharmacologic therapyfor osteoporosis in postmenopausal women and men over 50 who have: * A vertebral or hip fracture * A DXA hip or spine T-score less than or equal to -2.5 * Low bone mass and a US-adapted WHO 10 year probability of a hipfracture greater than or equal to 3% or 10 year probability of any majorosteoporosis-related fracture greater than or equal to 20%. * Patient preferences may indicate treatment for people with 10-yearfracture probability above or below these levels. 6) The [employer] College of Rheumatology recommends pharmacologic therapyfor osteoporosis for chronic glucocorticoid users with T-scores of -2.0 orbelow. APPROVED BY STAFF RADIOLOGIST: Foreign Victora 07/15/2022 3:57 PM EDT us Mike Magdaleno MD [facility] DXA PROCEDURES Final Result from Last 3 Months or Most Recently Relevant to Health Maintenance Care Teams Leak Hunter Relationship Specialty Start Date End Date Dex Smith MD [address] [place] [address] PCP - General 05/23/21
--- OUTSIDE RECORDS SUMMARY | 2025-01-12 10:41 | XMS_ITS | Encounter Summary ---
Author Organization [facility] Address [address] [place] [address] Phone Care Team Providers Care Stock Replenisher Name Role Phone Sandra Wiseman MD Primary Care Provider [phone] Sandra Wiseman MD Unavailable [phone] Sandra Wiseman MD Unavailable [phone] Nkechi Arrington NP Unavailable [phone] Jaydon Leyva MD Unavailable [phone] Vandana Sheppard TREASURY CONSULTANT Primary Care Provider Ralph Arita DO Primary Care Provider [phone] Lester Riggs DO Primary Care Provider Encounter Details Date Type Department Care Team (Late st Contact Info) Description 05/13/2017 Ancillary Orders Virtual Department [address] [place] [address] Sandra Wiseman MD [address] [place] [address] Breast screening Social History Tobacco Use Types Packs/Day Years [...] 10:40 AM EDT Office Visit [facility] [address] [place] [address] [place] [address] Sagrario Ugalde MD [address] [place] [address] 05/08/2025 8:20 AM EST Office Visit [address] [phone] Sagrario Ugalde MD [address] [place] [address] 01/14/2026 8:00 AM EDT Office Visit [facility] [address] [place] [address] Lester Riggs DO [address] [facility], [address] [place] [address] 01/29/2026 8:20 AM EDT Office Visit [address] [phone] Sagrario Ugalde MD [address] [place] [address] documented as of this encounter Results * (ABNORMAL) BI MAMMOGRAM SCREENING WITH TOMOSYNTHESIS WITH CAD (BILATERAL) (05/17/2017 5:14 PM EST) Anatomical Region Laterality Modality Breast Left, Breast Right, Breast Bilateral Bila teral Mammography 05/18/2017 9:19 AM EST Impressions 05/18/2017 9:26 AM EST Recommend additional imaging for calcifications on the left. No new suspicious findings on the right. The radiology department will attempt to recall the patient. BI-RADS CATEGORY: 0 - Incomplete. Need additional imaging evaluation. DENSITY: The breast tissue is heterogeneously dense, an appearance which lowers the sensitivity of mammography. LEFT RECOMMENDATION DATE: Additional Imaging RIGHT RECOMMENDATION DATE: Mammography screening CALLBACK VIEWS: Left 90 ML, magnification ML and CC views POS - CDHMAMA Narrative 05/18/2017 9:26 AM EST FINDINGS: Bilateral full-field digital screening mammography is obtained and read in conjunction with computer-aided detection. 3-D tomosynthesis as well as 2-D C view imaging is also performed. Comparison includes the most recent exam from 05/21/2015 and as far back as 04/27/2011. Breasts are composed of heterogeneously dense fibroglandular tissue which limits mammographic sensitivity. Few new benign-appearing macrocalcifications on the left. There is also a new grouping of punctate calcifications having a rounded configuration in the outer left breast. Additional imaging is recommended. Otherwise, no new dominant mass, suspicious microcalcifications, architectural distortion, focal skin thickening, or new asymmetry is detected. us Sandra Wiseman MD IMG MG EXAMS Final Resu lt documented in this encounter Visit Diagnoses Diagnosis Breast screening Breast screening, unspecified Breast screening Breast screening, unspecified documented in this encounter Care Teams Stock Replenisher Relationship Specialty Start Date End Date Sandra Wiseman MD [address] [place] [address] PCP - General Internal Medicine 05/13/17 11/02/22 Vandana Sheppard NP [address] [address] PCP - General Nurse Practitioner 11/03/22 07/30/24 Ralph Arita DO [address] [place] [address] PCP - General Family Medicine 07/31/24 10/23/24 Lester Riggs DO [address] [place] [address], [address] [place] [address] [email or web address] PCP - General Internal Medicine 10/24/24 Sandra Wiseman MD [address] [place] [address] 05/13/17 10/23/24 Sandra Wsieman MD [address] [place] [address] Historical LMR Provider 02/04/17 2 Nkechi Arrington NP [address] [place] [address] Historical LMR Provider 02/04/17 2 Jaydon Leyva MD [address] [place] [address], [facility] [address] [place] [address] [email or web address] Historical LMR Provider 02/04/17 04/26/21 documented as of this encounter Additional Source Comments The information contained in this document represents components of the legal health record. It is not the complete legal health record.[facility]
--- OUTSIDE RECORDS SUMMARY | 2025-01-12 10:41 | XMS_ITS | Clinical Summary ---
Author Organization [facility] Address Maya Caballero [facility] [place] [address] Phone Care Team Providers Care Compounding Pharmacy Technician Name Role Phone Beryl Rousseau MD Primary Care Provider [phone] Allergies Active Allergy Reactions Criticality Noted Date Comments Erythromycin Nausea And Vomiting 09/30/2009 Medications estradioL (VIVELLE-DOT) 0.075 mg/24 hr 2 patches weekly 09/15/2023 Active levothyroxine sodium (Tirosint) 75 mcg capsule Take 75 mcg by mouth daily. 07/12/2023 Active progesterone (Prometrium) 100 mg capsule Take 2 capsules (200 mg total) by mouth 1 (one) time each day. 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 08/03/2023 Thyroid disease 09/30/2009 Encounters Date Type Department Care Team Description 11/09/2024 Telephone Endocrinology - [address] [place] [address] Johny Howard MD 11/08/2024 Telephone Endocrinology - [address] [place] [address] Johny Howard MD 10/16/2024 10:30 AM EDT - 10/16/2024 11:59 PM EDT Hospital Encounter Ultrasound - [facility] [address] [place] [id number] Post-menopausal bleeding Discharge Disposition: Home or Self Care from Last 3 Months Immunizations Name Administration Dates Next Due Moderna SARS-CoV-2 COVID-19, mRNA, LNP-S, preservative free 08/10/2022,02/10/2022 Medical History Medical History Date Comments Asthma DX:Asthma Thyroid disease DX:Thyroid disea se Gab's disease DX:Gab 's disease Osteoporosis DX:Osteoporosis Family History Medical History Relation Name Comments Asthma Daughter 1 Diabetes Father Hypertension Father Asthma Maternal Grandmother Lung cancer Maternal Grandmother Asthma Mother Heart attack Mother Hypertension Mother Arthritis Neg Hx Breast cancer Neg Hx Colon cancer Neg Hx Coronary artery disease Neg Hx Eclampsia Neg Hx Other cancer Neg Hx Ovarian cancer Neg Hx labor Neg Hx Spontaneous Abortions Neg Hx Stroke Neg Hx Relation Name Status Comments Daughter 1 Daughter 2 Alive Father Alive Maternal Grandfather Maternal Grandmother Mother Alive Paternal Grandfather Paternal Grandmother Sister 1 Alive Sister 2 Alive Sister 3 Alive Social History Tobacco Use Types Packs/Day Years Used Date Smoking Tobacco: Never Smokeless Tobacco: Never Tobacco Cessation:Counseling Given: Not Answered Alcohol Use Standard Drinks/Week Comments Not Currently 0 (1 standard drink = 0.6 oz pur e alcohol) Comments No Sex and Gender Information Value Date Recorded Sex Assigned at Female 04/03/2024 12:54 PM EST Legal Sex Female 2:22 AM EST Gender Identity Female 04/03/2024 12:54 PM EST Sexual Orientation Straight 04/03/2024 12 :55 PM EST Obstetrics History Para Term AB IAB SAB Ectopic Multiple Livin g Live Births 1 Last Filed Vital Signs Vital Sign Reading Time Taken Comments Blood Pressure 139/84 03/30/2024 10:00 AM EST Pulse 94 03/30/2024 10:00 AM EST Temperature 36.1 C (97 F) 03/30/2024 10:00 AM EST Respiratory Rate - - Oxygen Saturation 97% 03/30/2024 10:00 AM EST Inhaled Oxygen Concentration - - Weight 47.6 kg (105 lb) 07/13/2024 7:20 AM EDT Height 154.9 cm (5' 1 ) 07/13/2024 7:20 AM EDT Body Mass Index 19.84 07/13/2024 7:20 AM EDT Plan of Treatment Upcoming Encounters Date Type Department Care Team (Late st Contact Info) Description 01/17/2025 12:45 PM EDT Hospital Encounter Ultrasound - [facility] [address] [place] [address] 07/19/2025 7:15 AM EDT [facility]ointment [facility] [address] [place] [address] Health Maintenance Due Date Last Done Comments Hepatitis B Vaccines (2 of 3 - 19+ 3-dose series) 03/14/2008 02/15/2008, 02/14/2008 Pneumococcal Vaccine: 50+ Years (1 of 1 - PCV) 2012 04/19/2011 Cervical Cancer Screening: Pap Smear 10/13/2013 10/13/2010 Colorectal Cancer Screening: Colonoscopy 03/22/2022 HIV Screening 03/22/2022 Hepatitis C Screening 03/22/2022 Social Influencers of Health Screening 03/22/2022 Depression Screening 04/19/2024 Influenza Vaccine (#1) 2024 , 01/06/2022, 01/04/2021, Additional history exists Breast Cancer Screening 07/13/2026 07/13/2024, 06/20 DTaP,Tdap,and Td Vaccines (3 - Td or Tdap) 08/12/2026 08/12/2016, 02/13/2009 Osteoporosis Screening (Bone Density Screening) 04/27/2034 04/27/2024, 04/22/2023, 07/13/2022 RSV Immunization Adult Patients (1 - 1-dose 75+ series) 2037 MMR Vaccines Aged Out 10/30/2016 No longer eligi ble based on patient's age to complete this topic Zoster Vaccines Completed 01/04/2021, 05/21, 04/19/2011 COVID-19 Vaccine Completed 01/02/2024, , 08/10/2022, Additional history exists HIB Vaccines Aged Out No longer eligi [...] patient's age to complete this topic Meningococcal ACWY Vaccine Aged Out N o longer eligible based on patient's age to complete this topic Meningococcal B Vaccine Aged Out No l onger eligible based on patient's age to complete this topic RSV Immunization Patients Under 20 months Aged Out No longer eligible based on patient's age to complete this topic Varicella Vaccines Aged Out No longer eligible based on patient's age to complete this topic Procedures Procedure Name Priority Date/Time Associated Diagnosis Comments VITAMIN D 25 HYDROXY Routine 01/08/2025 9:59 AM EDT Osteoporosis Gab's disease Thyroid disease THYROID STIMULATING HORMONE Routine 01/08/2025 9:59 AM EDT Osteoporosis Gab's disease Thyroid disease TRIIODOTHYRONINE TOTAL Routine 9:59 AM EDT Osteoporosis Gab's disease Thyroid disease TRIIODOTHYRONINE FREE Routine 01/08/2025 9:59 AM EDT Osteoporosis Gab's disease Thyroid disease VITAMIN B12 Routine 11/09/2024 12:29 PM EDT Gab's disease IRON AND TIBC Routine 11/09/2024 12:29 PM EDT Gab's disease FERRITIN Routine 11/09/2024 12:29 PM EDT Gab's disease US PELVIS NON OB COMPLETE W TRANSVAGINAL Routine 10/16/2024 11:20 AM EDT Post-menopausal bleeding MG MAMMO DIGITAL SCREENING W MUSA BILAT Routine 07/13/2024 7:27 AM EDT Encounter for screening mammogram for breast cancer HM PAP SMEAR Routine 10/13/2010 from Last 3 Months or Most Recently Relevant to Health Maintenance Results * Vitamin D 25 hydroxy (01/08/2025 9:59 AM EDT) Vit D, 25-Hydroxy 41.4 30.0 - 80.0 ng/mL LAB CHEMISTRY METHOD 01/08/2025 2:38 PM EDT [facility] Blood Venous blood specimen / Unknown Venipuncture / Unknown 01/08/2025 9:59 AM EDT 01/08/2025 9:59 AM EDT Johny Howard MD LAB BLOOD ORDERABLES Final Resul t Performing Organization Address City/[facility]/ZIP Co de Phone Number [facility] [address] [place] [address], [place] [phone] * Triiodothyronine free (01/08/2025 9:59 AM EDT) T3, Free 290 230 - 420 pcg/dL LAB CHEMISTRY METHOD 01/08/2025 2:38 PM EDT [facility] Blood Venous blood specimen / Unknown Venipuncture / Unknown 01/08/2025 9:59 AM EDT 01/08/2025 9:59 AM EDT Litzy AMOR LAB BLOOD ORDERABLES Final Resul t Performing Organization Address City/[facility]/ZIP Co de Phone Number [facility] [address] [place] [address], [place] [phone] * Triiodothyronine total (01/08/2025 9:59 AM EDT) T3, Total 67.35 60.00 - 181.00 ng/dL LAB CHEMISTRY METHOD 01/08/2025 2:38 PM EDT [facility] Blood Venous blood specimen / Unknown Venipuncture / Unknown 01/08/2025 9:59 AM EDT 01/08/2025 9:59 AM EDT Litzy AMOR LAB BLOOD ORDERABLES Final Resul t [facility] [address] [place] [address], [place] [phone] * (ABNORMAL) Thyroid stimulating hormone (01/08/2025 9:59 AM EDT) [facility] TSH 0.29(L) 0.40 - 4.00 mcIU/mL LAB CHEMISTRY METHOD 01/08/2025 2:39 PM EDT [facility] Blood Venous blood specimen / Unknown Venipuncture / Unknown 01/08/2025 9:59 AM EDT 01/08/2025 9:59 AM EDT Litzy AMOR LAB BLOOD ORDERABLES Final Resul t Performing Organization Address [facility]/ZIP Co de Phone Number [facility] [address] [place] [address], * (ABNORMAL) Iron and TIBC (11/09/2024 12:29 PM EDT) [facility] Iron 159(H) 40 - 150 mcg/dL LAB CHEMISTRY METHOD 11/09/2024 6:07 PM EDT [facility] TIBC 347 250 - 450 mcg/dL LAB CHEMISTRY METHOD 11/09/2024 6:07 PM EDT [facility] Iron Saturation 46 15 - 50 % LAB CHEMISTRY METHOD 11/09/2024 6:07 PM EDT [facility] Blood Venous blood specimen / Unknown Venipuncture / Unknown 11/09/2024 12:29 PM EDT 11/09/2024 12:29 PM EDT Johny Howard MD LAB BLOOD ORDERABLES Final Resul t Performing Organization Address City/[facility]/ZIP Co de Phone Number [facility] [address] [place] [address], [place] [phone] * Ferritin (11/09/2024 12:29 PM EDT) Ferritin 28 8 - 252 ng/mL LAB CHEMISTRY METHOD 11/09/2024 6:07 PM EDT [facility] Blood Venous blood specimen / Unknown Venipuncture / Unknown 11/09/2024 12:29 PM EDT 11/09/2024 12:29 PM EDT Johny Howard MD LAB BLOOD ORDERABLES Final Resul t Performing Organization Address [facility] de Phone Number [facility] [address] [place] [address], [place] [phone] * Vitamin B12 (11/09/2024 12:29 PM EDT) Pathologist [facility] Vitamin B-12 870 250 - 900 pcg/mL LAB CHEMISTRY METHOD 11/09/2024 6:07 PM EDT [facility] Blood Venous blood specimen / Unknown Venipuncture / Unknown 11/09/2024 12:29 PM EDT 11/09/2024 12:29 PM EDT Johny Howard MD LAB BLOOD ORDERABLES Final Resul t Performing Organization Address [facility] de Phone Number [facility] [address] [place] [address], [place] [phone] * US Pelvis Non OB Complete w Transvaginal (10/16/2024 11:20 AM EDT) Anatomical Region Laterality Modality Body, Pelvis Ultrasound 10/16/2024 11:4 5 AM EDT Impressions 10/16/2024 11:48 AM EDT 1. Endometrial stripe is borderline thickened measuring 0.6 cm. -------- FINAL REPORT -------- Dictated By: Jose Longoria Dictated Date: 10/16/2024 11:45 ET Assigned Physician: Jose Longoria Reviewed and Electronically Signed By: Jose Longoria Signed Date: 10/16/2024 11:48 ET Workstation ID: [id number] Transcribed By: Self Edit Transcribed Date: 10/16/2024 11:45 ET Narrative 10/16/2024 11:48 AM EDT EXAM: TRANSABDOMINAL AND TRANSVAGINAL PELVIC ULTRASOUND HISTORY: POST MENOPAUSAL BLEEDING COMPARISON: Ultrasound pelvis from 01/31/2024 Technique: Grayscale and Doppler images of the pelvis were obtained using transabdominal approach. Transvaginal approach was used to better characterize the ovaries. FINDINGS: The uterus is normal in size and measures 9.0 x 4.2 x 6.0 cm. The endometrial stripe measures up to 0.6 cm. There is mild heterogeneity of the myometrium. Nabothian cysts are present. Ovaries are not visualized No free fluid. Procedure Note Jose Longoria MD - 10/16/2024 EXAM: TRANSABDOMINAL AND TRANSVAGINAL PELVIC ULTRASOUND HISTORY: POST MENOPAUSAL BLEEDING COMPARISON: Ultrasound pelvis from 01/31/2024 Technique: Grayscale and Doppler images of the pelvis were obtained usingtransabdominal approach. Transvaginal approach was used to bettercharacterize the ovaries. FINDINGS: The uterus is normal in size and measures 9.0 x 4.2 x 6.0 cm. Theendometrial stripe measures up to 0.6 cm. There is mild heterogeneity ofthe myometrium. Nabothian cysts are present. Ovaries are not visualized No free fluid. IMPRESSION: 1. Endometrial stripe is borderline thickened measuring 0.6 cm. -------- FINAL REPORT -------- Dictated By: Jose Longoria Dictated Date: 10/16/2024 11:45 ET Assigned Physician: Jose Longoria Reviewed and Electronically Signed By: Jose Longoria Signed Date: 10/16/2024 11:48 ET Workstation ID: [id number] Transcribed By: Self Edit Transcribed Date: 10/16/2024 11:45 ET us Opal Haro NP IMG US PROCEDURES Final Result * MG Mammo Digital Screening w Musa bilat (07/13/2024 7:27 AM EDT) Anatomical Region Laterality Modality Breast Bilateral Mammography 07/14/2024 7:50 AM EDT Impressions 07/14/2024 7:53 AM EDT No mammographic evidence of malignancy. A negative mammogram in the presence of a clinically suspicious palpable abnormality does not preclude the possibility of malignancy or alter the indications for biopsy. PQRI CPT II 3342F Code 41507, 35746 PQRI 225 CPT II 7025F TISSUE DENSITY: The breasts are heterogeneously dense, which may obscure small masses. (BI-RADS category C) IMPRESSION: Benign. BI-RADS CATEGORY: 2 - BENIGN RECOMMENDATION: Screening bilateral mammogram is recommended in 1 year. Mammo Location: [facility], [address] [place] [address] -------- FINAL REPORT -------- Dictated By: Pete Rosas Dictated Date: 07/14/2024 07:50 ET Assigned Physician: Pete Rosas Reviewed and Electronically Signed By: Pete Rosas Signed Date: 07/14/2024 07:53 ET Workstation ID: [id number] Transcribed By: Self Edit Transcribed Date: 07/14/2024 07:50 ET Narrative 07/14/2024 7:53 AM EDT CLINICAL: The patient is a 63 years Female presenting for routine screening mammography. COMPARISON: Most recently 06/21/2023 and most remotely 12/27/2020. TECHNIQUE: Full-field digital mammography of the breasts bilaterally consisting of tomosynthesis in MLO and CC projection is performed in the [employer] 2000-D unit. Computer aided detection utilizing the iCAD system was utilized. FINDINGS: The breasts are again seen to be composed of a combination of fatty and moderately dense fibroglandular elements. A few scattered benign calcifications are present in the left breast. There is no suspicious cluster of microcalcifications, mass, or area of architectural distortion. There is no skin thickening or nipple retraction. Procedure Note Pete Rosas MD - 07/14/2024 CLINICAL: The patient is a 63 years Female presenting for routinescreening mammography. COMPARISON: Most recently 06/21/2023 and most remotely 12/27/2020. TECHNIQUE: Full-field digital mammography of the breasts bilaterallyconsisting of tomosynthesis in MLO and CC projection is performed in the[employer] 2000-D unit. Computer aided detection utilizing the mascotsecretystem was utilized. FINDINGS: The breasts are again seen to be composed of a combination offatty and moderately dense fibroglandular elements. A few scatteredbenign calcifications are present in the left breast. There is nosuspicious cluster of microcalcifications, mass, or area of architecturaldistortion. There is no skin thickening or nipple retraction. IMPRESSION: No mammographic evidence of malignancy. A negative mammogram in the presence of a clinically suspicious palpableabnormality does not preclude the possibility of malignancy or alter theindications for biopsy. PQRI CPT II 3342F Code 92389, 54487 PQRI 225 CPT II 7025F TISSUE DENSITY: The breasts are heterogeneously dense, which may obscuresmall masses. (BI-RADS category C) IMPRESSION: Benign. BI-RADS CATEGORY: 2 - BENIGN RECOMMENDATION: Screening bilateral mammogram is recommended in 1 year. Mammo Location: [facility], [address] [place] [id number] -------- FINAL REPORT -------- Dictated By: Pete Rosas Dictated Date: 07/14/2024 07:50 ET Assigned Physician: Pete Rosas Reviewed and Electronically Signed By: Pete Rosas Signed Date: 07/14/2024 07:53 ET Workstation ID: [id number] Transcribed By: Self Edit Transcribed Date: 07/14/2024 07:50 ET us Self Referral Sppl IMG BI PROCEDURES Final Resul t * Hm Pap Smear (10/13/2010) HM Pap smear no interpretation , abstracted us Historical Provider HEALTH MAINTENANCE Final Result from Last 3 Months or Most Recently Relevant to Health Maintenance Insurance [facility] Care Teams Compounding Pharmacy Technician Relationship Specialty Start Date End Date Beryl Rousseau MD [address] [place] [id number] PCP - General Internal Medicine 07/13/24
--- OUTSIDE RECORDS SUMMARY | 2025-01-12 10:41 | XMS_ITS | Encounter Summary ---
Author Organization [facility] Address [address] [place] [address] Care Team Providers Care Executive Advisor Name Role Phone Asaf Magdaleno MD Primary Care Provider [phone] Encounter Details Date Type Department Care Team (Late st Contact Info) Description 11/05/2022 Ancillary Orders [facility] Radiology, Outpatient Center (Diag Rad) [address] [facility] [employer], [address] [place] [address] ProviderEleazar MD [address] [place] [address] Social History Tobacco Use Types Packs/Day Years [...] Results * US TRANSFER OF OUTSIDE FILMS (11/05/2022 12:00 AM EDT) Narrative IMAGING - 11/05/2022 11:22 AM EDT This order has been auto-finalized and does not contain a result. Procedure Note Tamika Ledesma - 11/05/2022 This order has been auto-finalized and does not contain a result. us Eleazar Provider IMG US PROCEDURES Final Resu lt IMAGING documented in this encounter Visit Diagnoses Not on filedocumented in this encounter Care Teams Executive Advisor Relationship Specialty Start Date End [place] [address] PCP - General 08/11/21 documented as of this encounter
--- OUTSIDE RECORDS SUMMARY | 2025-01-12 10:41 | XMS_ITS | Encounter Summary ---
Author Organization [facility] Address [address] [place] [address] Care Team Providers Care Ribbon Lapper Tender Name Role Phone Asaf Magdaleno MD Primary Care Provider [phone] Encounter Details Date Type Department Care Team (Late st Contact Info) Description 08/12/2021 Ancillary Orders [facility] Radiology, Outpatient Center (Diag Rad) [address] [place] [address], [address] [place] [address] Asaf Magdaleno MD [address] [address] Social History Tobacco Use Types Packs/Day Years [...] on filedocumented in this encounter Care Teams Ribbon Lapper Tender Relationship Specialty Start Date End Date Asaf Magdaleno MD [facility] [address] [place] [address] PCP - General 08/11/21 documented as of this encounter
--- OUTSIDE RECORDS SUMMARY | 2025-01-12 10:41 | XMS_ITS | Encounter Summary ---
Author Organization [facility] Address [address] [place] [address] Care Team Providers Care Program Schedule Clerk Name Role Phone Asaf Magdaleno MD Primary Care Provider [phone] Encounter Details Date Type Department Care Team ([facility] st Contact Info) Description 08/14/2021 Procedure Pass [facility], Radiology (Ultrasound) [address] [place] [address] Social History Tobacco Use Types Packs/Day Years [...] on filedocumented in this encounter Care Teams Program Schedule Clerk Relationship Specialty Start Date End Date [place] [address] PCP - General 08/11/21 documented as of this encounter
--- OUTSIDE RECORDS SUMMARY | 2025-01-12 10:41 | XMS_ITS | Encounter Summary ---
Author Organization [facility] Address [address] [place] [address] Care Team Providers Care Showcase Trimmer Name Role Phone Asaf Magdaleno MD Primary Care Provider [phone] Encounter Details Date Type Department Care Team (Late st Contact Info) Description 08/14/2021 Ancillary Orders [facility] Radiology, Outpatient Center (Breast Imaging) [address] [place] [address], [address] [place] [address] Asaf Magdaleno MD [address] [address] Social History Tobacco Use Types Packs/Day Years [...] on filedocumented in this encounter Care Teams Showcase Trimmer Relationship Specialty Start Date End Date Asaf Magdaleno MD [address] [address] PCP - General 08/11/21 documented as of this encounter
--- OUTSIDE RECORDS SUMMARY | 2025-01-12 10:41 | XMS_ITS | Encounter Summary ---
Author Organization [facility] Address [address] [place] [address] Care Team Providers Care First Aid Teacher Name Role Phone Asaf Magdaleno MD Primary Care Provider [phone] Encounter Details Date Type Department Care Team (Late st Contact Info) Description 11/05/2022 Procedure Pass [facility], Radiology (Ultrasound) [address] [place] [address] Social History Tobacco Use Types Packs/Day Years [...] on filedocumented in this encounter Care Teams First Aid Teacher Relationship Specialty Start Date End [place] [address] PCP - General 08/11/21 documented as of this encounter
--- OUTSIDE RECORDS SUMMARY | 2025-01-12 10:41 | XMS_ITS | Clinical Summary ---
Author Organization [facility] Address [address] [place] [address] Care Team Providers Care Automotive Tire Technician Name Role Phone Beryl Keyes MD Primary Care Provider [phone] Allergies Active Allergy Reactions Criticality Noted Date Comments Erythromycin Nausea,Vomiting,Naus ea And Vomiting 06/29/2023 pt states not allergic Erythromycin Base Nausea 08/26/2023 Montelukast Palpitations 06/29/2023 (+) chills and nightsweats reported 04/17/05 Medications COLLAGEN, BOVINE, TOP 0 Refills, Maintenance, 01/28/23 10:57:00 EDT, Partial fill upon patient request if the prescription is for a schedule II opioid drug. 3 Active CombiPatch 0.05-0.25 mg/24 hr 4 Active Tirosint 75 mcg capsule SMARTSI Capsule(s) By Mouth Every Morning Active multivitamin (THERAGRAN) tablet Take 1 tablet by mouth once a day. Active Vitamin D3 25 mcg (1,000 unit) capsule Take 1 capsule by mouth once a day. Active pseudoephedrine HCl (Zephrex-D) 30 mg tablet (tamper resistant) Take 2 tablets by mouth. 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 Hypothyroidism 02/14/2013 History of migraine headaches 02/14/2013 Resolved Problems Problem Noted Date Diagnosed Date Resolved Date Thickened endometrium 08/26/20232023 Premenstrual tension syndrome 02/14/2013 08/26/2023 Immunizations Immunization Administration Dates Next Due COVID-19, Pfizer, mRNA, Biva lent Booster, PF, 30 mcg/0.3 mL dose (for age 12 y and up) 08/10/2022,02/10/2022 Covid-19, Pfizer, mRNA, Mynor -sucrose Vaccine, PF, 30 mcg/0.3 mL (for age 12 y and up) 02/02/2023 Hep B, Unspecified 02/14/2008 Hepatitis B adult (ENGERIX-B ADULT) vaccine 1 mL IM 02/14/2008 Hepatitis B adult (ENGERIX-B/RECOMBIVAX HB ADULT) vaccine 1 mL IM 02/15/2008 INFLUENZA, SPLIT VIRUS, TRIVALENT, PF 01/16/2014 Influenza Whole 01/07/2017,01/15/2014,01/09/2014 Influenza, Injectable, [place]in [place] Canine Kidney, Preservative Free, Quadrivalent 01/06/2022,01/29/2020,01/01/2019,2016 Influenza, Injectable, Quadr ivalent, Preservative Free 01/04/2021,12/26/2017 Influenza, Trivalent, MDV, Injectable 01/10/2014 ,12/18/2013,01/17/2013 Influenza, Unspecified 04/19/2011 Measles, Mumps, and Rubella Vaccine 10/30/2016 Pneumococcal Vaccine, Unspec ified Formulation 04/19/2011 Tetanus Toxoid, Reduced Diph theria Toxoid, and Acellular Pertussis Vaccine, Adsorbed 08/12/2016,02/14/2009 Tuberculin Skin Test; Purifi ed Protein Derivative Solution, Intradermal 12/19/2014,01/24/2013 Zoster Vaccine Recombinant 01/04/2021,06/15/2019 Zoster Vaccine, Live 04/19/2011 Family History Medical History Relation Name Comments Other Father's Sister Paternal aun t's history of Adenocarcinoma Of The Lung Other Maternal Grandmother Materna l grandmother's history of Adenocarcinoma Of The Lung Other Mother Maternal histor y of Primary Hemochromatosis Other Sister Sororal history of Primary Hemochromatosis Relation Name Status Comments Father's Sister Maternal Grandmother Mother Sister Social History Tobacco Use Types Packs/Day Years Used Date Smoking Tobacco: Never Passive Smoke Exposure: Past Smokeless Tobacco: Never Tobacco Cessation:Counseling Given: Not Answered Comments:: Comments No Sex and Gender Information Value Date Recorded Sex Assigned at Female 08/19/2023 2:29 PM EDT Legal Sex Female Gender Identity Not on file Sexual Orientation Not on file Last Filed Vital Signs Vital Sign Reading Time Taken Comments Blood Pressure 110/74 08/26/2023 8:01 AM EDT Pulse 70 08/26/2023 8:01 AM EDT Temperature 37.1 C (98.8 F) 02/02/2013 9:18 AM EDT Respiratory Rate 16 08/26/2023 8:01 AM EDT Oxygen Saturation - - Inhaled Oxygen Concentration - - Weight 48.5 kg (107 lb) 08/26/2023 8:01 AM EDT Height 152.4 cm (5') 08/26/2023 8:01 AM EDT Body Mass Index 20.9 08/26/2023 8:01 AM EDT Plan of Treatment Health Maintenance Due Date Last Done Comments Cologuard 1962 Colon Cancer Screening 1962 Colonoscopy 1962 FOBT / Fit Test 1962 HIV Screening 1962 Hepatitis C Screening 1962 Sigmoidoscopy 1962 Hepatitis B Vaccines (2 of 3 - 19+ 3-dose series) 03/14/2008 02/15/2008, 02/14/2008, 02/14/2008 Pap Smear 11/15/2011 11/14/2008, 10/10/2007 Pneumococcal Vaccine: 50+ Ye ars (1 of 1 - PCV) 2012 Cervical Cancer Screening 11/14/2013 HPV and Pap Smear 11/14/2013 11/14/2008 Mammogram 05/18/2019 05/18/2017, 04/20, 05/17/2017 Alcohol/Substance Use Screening 04/19/2024 Depression Screening and Follow-Up 04/19/2024 Social Drivers of Health Coty ual Screening 04/19/2024 COVID-19 Vaccine (2024-2 6 season) 2024 02/02/2023, 08/10/2022, 02/10/2022, Additional history exists Influenza Vaccine (#1) 2024 , 01/04/2021, 01/29/2020, Additional history exists DTaP,Tdap,and Td Vaccines (3 - Td or Tdap) 08/12/2026 08/12/2016, 02/14/2009 RSV Vaccine (60+ years old a nd patients) (1 - 1-dose 75+ series) 2037 Zoster Vaccines Completed 01/04/2021, 05/21, 04/19/2011 Procedures * Due to [facility] law, this organization might not be sharing negative HIV tests. Procedure Name Priority Date/Time Associated Diagnosis Comments PAP W/HPV, CONVERSION Routine 11/14/2008 1:43 PM EDT from Last 3 Months or Most Recently Relevant to Health Maintenance Results * Due to [place] [employer] law, this organization might not be sharing negative HIV tests. * Pap w/HPV (11/14/2008 1:43 PM EDT) Path Procedure HPV (453341) 1 TPGA (566969) 1 Edited by: [id number] - [id number] AMANUEL [facility] ANATOMIC PATHOLOGY - BIOTECH THREE Specimen Labeled As: 1 CERVICAL/ENDOCERVI RENETTA CYTO MATERIAL - Edited by: [id number] - 4357 MICHEAL [facility] ANATOMIC PATHOLOGY - BIOTECH THREE Additional Test Information Specimens were tested for high risk HPV using the FDA approved Digene Hybrid Capture II kit, in the Diagnostic Molecular Oncology Lab at [facility]. This test can detect HPV high risk types 16, 18, 31, 33, 35, 39, 45, 51, 52, 56, 58, 59 and 68. High-risk subtypes of HPV are found in ~96% (NOT 100%) of patients with high grade squamous intraepithelial lesions and cervical squamous cell carcinoma. Additional studies may be indicated in spite of a negative HPV test, e.g. inpatients with a friable cervix or multiple previous abnormal pap tests. HPV testing is not recommended for managing patients with atypical glandular cells. Not all high-risk HPV infections are associated with a histologic or cytologic abnormality. We endorse the recommendations of the [place] Society for Colposcopy and Cervical Pathology for management of pap test results, available at www.asccp.org. Edited by: [id number] ELOISE-SCRPT6 [facility] ANATOMIC PATHOLOGY - BIOTECH THREE Diagnosis ThinPrep Pap Test Adequacy: Satisfactory for evaluation Interpretation: Negative for Intraepithelial Lesion or Malignancy This Pap test was examined by the ThinPrep Imaging System, [employer], [place], [place]. - High risk HPV DNA subtypes: NEGATIVE Edited by: [id number] ELOISE-SCRPT6 [id number] - 832 MALINAMICHAELW [facility] ANATOMIC PATHOLOGY - BIOTECH THREE Gynecologic Clinical Data Specimen source:, THINPREP (CERVICAL AND ENDOCERVICAL) [facility] ANATOMIC PATHOLOG[facility] - BIOTECH THREE Gynecologic Clinical Data First date of LMP:, 10-26-08 [facility] ANATOMIC PATHOLOG[facility] - BIOTECH THREE Gynecologic Clinical Data Clinical Data:, Premenopause [facility] ANATOMIC PATHOLOG[facility] - BIOTECH THREE Completed Report [id number] CYTOPATH C/V AUTORESCR DX 1 [facility] ANATOMIC [facility] - BIOTECH THREE Marker 1 KARELY CERVANTES [facility] ANATOMIC PATHOLOGY - BIOTECH THREE Marker 2 MANUEL, NEGATIVE [facility] ANATOMIC PATHOLOGY - BIOTECH THREE Marker 3 NILM,NILM [facility] ANATOMIC PATHOLOGY - BIOTECH THREE Marker 4 RIM,RECEIVED IN MOLECULAR [facility] ANATOMIC PATHOLOGY - BIOTECH THREE Marker 5 BENJY PERKINS [facility] ANATOMIC PATHOLOGY - BIOTECH THREE Cc Results To WASHBURNKOLE PATINOA REFNP [id number] [facility] ANATOMIC PATHOLOG[facility] - BIOTECH THREE Signature REPORT SIGNED: BENJY ARAUZ 11/21/08 [facility] ANATOMIC PATHOLOG[facility] - BIOTECH THREE Sign Out Audit BENJY ARAUZ [id number] FINAL [place] [id number] [facility] ANATOMIC PATHOLOGY - BIOTECH THREE Cytology / Unknown 1:43 PM EDT 11/16/2008 1:43 PM EDT us [facility] HISTORICAL RESULTS Final Res ult [facility] ANATOMIC PATHOLOG[facility] - BIOTECH THREE [place] [address], [place] from Last 3 Months or Most Recently Relevant to Health Maintenance Insurance [facility] Care Teams Automotive Tire Technician Relationship Specialty Start Date End Date Beryl Keyes MD [address] [place] [id number] PCP - General 08/26/23
--- OUTSIDE RECORDS SUMMARY | 2025-01-12 10:41 | XMS_ITS | Encounter Summary ---
Author Organization [facility] Address [address] [place] [address] Care Team Providers Care Block Handler Name Role Phone Asaf Magdaleno MD Primary Care Provider [phone] Encounter Details Date Type Department Care Team (Late st Contact Info) Description 11/05/2022 Ancillary Orders [facility] Radiology, Outpatient Center (Diag Rad) [address] [facility], [address] [place] [address] ProviderEleazar MD [address] [place] [address] Social History Tobacco Use Types Packs/Day Years Used Date Smoking Tobacco: Never Assessed Comments Unknown Sex and Gender Information Value Date Recorded Sex Assigned at Not on file Legal Sex Female 11:36 AM EDT Gender Identity Not on file Sexual Orientation Not on file documented as of this encounter Plan of Treatment Not on file documented as of this encounter Results * MG TRANSFER OF OUTSIDE FILMS (11/05/2022 12:00 AM EDT) Narrative IMAGING - 11/05/2022 11:20 AM EDT This order has been auto-finalized and does not contain a result. Procedure Note Tamika Ledesma - 11/05/2022 This order has been auto-finalized and does not contain a result. Eleazar Provider MD CORREIA BI PROCEDURES Final Resu lt IMAGING documented in this encounter Visit Diagnoses Not on filedocumented in this encounter Care Teams Block Handler Relationship Specialty Start Date [place] [address] PCP - General 08/11/21 documented as of this encounter
--- OUTSIDE RECORDS SUMMARY | 2025-01-12 10:41 | XMS_ITS | Encounter Summary ---
Author Organization [facility] Address [address] [place] [address] Care Team Providers Care Director Of Global Sales Name Role Phone Asaf Magdaleno MD Primary Care Provider Encounter Details Date Type Department Care Team ([facility] st Contact Info) Description 08/20/[address] [facility], Radiology (Ultrasound) [address] [place] [address] Social History Tobacco Use Types Packs/Day Years [...] on filedocumented in this encounter Care Teams Director Of Global Sales Relationship Specialty Start Date End Date [place] [address] PCP - General 08/11/21 documented as of this encounter
--- OUTSIDE RECORDS SUMMARY | 2025-01-12 10:41 | XMS_ITS | Encounter Summary ---
Author Organization [facility] Address [address] [place] [address] Care Team Providers Care Junior Estimator Name Role Phone Asaf Magdaleno MD Primary Care Provider [phone] Encounter Details Date Type Department Care Team (Late st Contact Info) Description 08/14/2021 Ancillary Orders [facility] Radiology, Outpatient Center (Diag Rad) [address] [facility], [address] [place] [address] ProviderEleazar MD [address] [place] [address] Social History Tobacco Use Types Packs/Day Years [...] Results * US TRANSFER OF OUTSIDE FILMS (08/14/2021 12:00 AM EDT) Narrative IMAGING - 08/14/2021 1:40 PM EDT This order has been auto-finalized and does not contain a result. Procedure Note Martha Butt [place] - 08/14/2021 This order has been auto-finalized and does not contain a result. us Eleazar Provider MD CORREIA US PROCEDURES Final Resu lt IMAGING * MG TRANSFER OF OUTSIDE FILMS (12/27/2020 12:00 AM EDT) Narrative IMAGING - 08/14/2021 1:36 PM EDT This order has been auto-finalized and does not contain a result. Procedure Note Martha Butt [place] - 08/14/2021 This order has been auto-finalized and does not contain a result. us Cutover Provider MD [place] BI PROCEDURES Final Resu lt Performing Organization Address [facility] de Phone Number IMAGING * MG TRANSFER OF OUTSIDE FILMS (01/23/2020 12:00 AM EDT) Narrative IMAGING - 08/14/2021 1:36 PM EDT This order has been auto-finalized and does not contain a result. Procedure Note Martha Butt [place] - 08/14/2021 This order has been auto-finalized and does not contain a result. Cutover Provider MD CORREIA BI PROCEDURES Final Resu lt Performing Organization Address [facility] de Phone Number IMAGING * MG TRANSFER OF OUTSIDE FILMS (07/22/2018 12:00 AM EDT) Narrative IMAGING - 08/14/2021 1:37 PM EDT This order has been auto-finalized and does not contain a result. Procedure Note Martha Butt [place] - 08/14/2021 This order has been auto-finalized and does not contain a result. us Cutover Provider MD BARROWG BI PROCEDURES Final Resu lt Performing Organization Address [facility] de Phone Number IMAGING * MG TRANSFER OF OUTSIDE FILMS (06/21/2017 12:00 AM EST) Narrative IMAGING - 08/14/2021 1:37 PM EDT This order has been auto-finalized and does not contain a result. Procedure Note Martha Butt, [place] - 08/14/2021 This order has been auto-finalized and does not contain a result. us Cutover Provider MD CORREIA BI PROCEDURES Final Resu lt Performing Organization Address [facility] Co de Phone Number IMAGING * MG TRANSFER OF OUTSIDE FILMS (05/04/2014 12:00 AM EST) Narrative IMAGING - 08/14/2021 1:39 PM EDT This order has been auto-finalized and does not contain a result. us Cutover Provider MD CORREIA BI PROCEDURES Final Resu lt Performing Organization Address [facility] Co de Phone Number IMAGING * MG TRANSFER OF OUTSIDE FILMS (05/03/2013 12:00 AM EST) Narrative IMAGING - 08/14/2021 1:39 PM EDT This order has been auto-finalized and does not contain a result. us Cutover Provider MD CORREIA BI PROCEDURES Final Resu lt Performing Organization Address [facility] Co de Phone Number IMAGING documented in this encounter Visit Diagnoses Not on filedocumented in this encounter Care Teams Junior Estimator Relationship Specialty Start Date [place] [address] PCP - General 08/11/21 documented as of this encounter
--- OUTSIDE RECORDS SUMMARY | 2025-01-12 10:41 | XMS_ITS | Encounter Summary ---
Author Organization [facility] Address [address] [place] [address] Care Team Providers Care Director Professional Services Name Role Phone Asaf Magdaleno MD Primary Care Provider [phone] Encounter Details Date Type Department Care Team (Late st Contact Info) Description 11/05/2022 Ancillary Orders [facility] Radiology, Outpatient Center (Diag Rad) [address] [facility], [address] [place] [address] ProviderEleazar MD [address] [place] [address] Social History Tobacco Use Types Packs/Day Years [...] * MG TRANSFER OF OUTSIDE FILMS (11/05/2022 12:05 AM EDT) Narrative IMAGING - 11/05/2022 11:24 AM EDT This order has been auto-finalized and does not contain a result. Procedure Note Tamika Ledesma - 11/05/2022 This order has been auto-finalized and does not contain a result. Eleazar Provider MD CORREIA BI PROCEDURES Final Resu lt IMAGING documented in this encounter Visit Diagnoses Not on filedocumented in this encounter Care Teams Director Professional Services Relationship Specialty Start Date End [place] [address] PCP - General 08/11/21 documented as of this encounter
== END 2025-01-12 09:41 | disposition home or self-care (01) ==
LOC: CF 09:40
DX: Z13.89 Encounter for screening for other disorder (principal)

== ENCOUNTER 2025-01-25 10:43 | Outpatient (REF) | payer OTHER, SELFPAY ==
--- NOTE | ~2025-01-25 | US_ITS ---
EXAMINATION: US SCREENING ULTRASOUND BREAST, BILATERAL CLINICAL INFORMATION: Dense breasts on mammography. Screening ultrasound. Patient states she has a high Tyrer Cuzik score. COMPARISON: Available priors from outside dated 201907/06/2021. TECHNIQUE: Ultrasound is performed using grayscale imaging and color Doppler. Imaging is performed to include the four quadrants and retroareolar region. Both breasts are imaged. FINDINGS: Right breast: There is no suspicious finding by ultrasound. There is no solid mass or focal architectural abnormality. Left breast: There is no suspicious finding by ultrasound. There is no solid mass or focal architectural abnormality. US/US breast BI complete IMPRESSION: No suspicious findings on screening breast ultrasound. ASSESSMENT: Category 1: Negative RECOMMENDATION: 1 year F/U Patient states her last mammogram was 2023 up to date from outside institution. Recommend obtaining prior screening mammogram report and imaging from 2023. Patient states she has high risk factors and may qualify for breast MRI screening. Breast MRI screening surveillance should be considered. Breast MRI would need to be ordered by the patient's providing clinician. This patient's information was entered into a reminder system with a target due date for their next mammogram. Electronically signed by: Veronica Kemp DO 01/25/2025 12:34 PM EDT
== END 2025-01-25 10:44 | disposition home or self-care (01) ==
LOC: HO.MAMMO 10:43
PROVIDERS: PCP Nurse Practitioner Adult Health; Visit Provider Nurse Practitioner Adult Health
DX: R92.333 Mammographic heterogeneous density, bilateral breasts (principal)
CPT/HCPCS: 76641

== ENCOUNTER → 2025-01-25 11:00 | Outpatient (BNV) | payer OTHER, SELFPAY | PROVIDERS: PCP Nurse Practitioner Adult Health; Visit Provider Internal Medicine | DX: R92.30 Dense breasts, unspecified (principal) | CPT/HCPCS: 76641 ==